=== PATIENT | male | born 2000 | race Caucasian/White ===

== ENCOUNTER 2023-05-01 18:56 | Emergency (ER) | payer BC ==
[~2023-05-01] VITALS: Ht 172.7 cm; Wt 79.5 kg
[2023-05-01 19:35] LABS: ALBUMIN 4.9 g/dL (3.5-5.0)
[2023-05-01 19:37] LABS: CALCIUM 9.7 mg/dL (8.3-10.5)
[2023-05-01 19:38] LABS: TOTAL PROTEIN 7.8 g/dL (6.4-8.3)
[2023-05-01 19:40] LABS: TOTAL BILIRUBIN 0.6 mg/dL (0.2-1.2)
[2023-05-01 19:45] LABS: BASO # 0.04 K/mm3 (0.02-0.10); EOS # 0.04 K/mm3 (0.04-0.40); EOS % 0.3 % (0.0-4.0); HEMATOCRIT 43.7 % (42.0-52.0); HEMOGLOBIN 15.1 g/dL (13.5-18.0); LYMPH# 1.82 K/mm3 (1.50-4.00); MEAN CELL VOLUME 90 fl (78-100); MEAN CORPUSCULAR HEMOGLOBIN 31 pg (27-31); MEAN CORPUSCULAR HGB CONC 35 g/dL (33-37); MONO # 1.18 K/mm3 (0.20-0.80); NEU # 12.16 K/mm3 (1.40-6.50); PLATELET COUNT 274 K/mm3 (130-400); RED BLOOD COUNT 4.87 M/mm3 (4.20-5.60); RED CELL DISTRIBUTION WIDTH 11.3 % (11.5-14.5); WHITE BLOOD COUNT 15.3 K/mm3 (4.8-10.8)
[2023-05-01 19:52] LABS: PH-URINE 8.5 (5.0 - 8.0); URINE APPEARANCE HAZY; URINE BILIRUBIN NEGATIVE (NEGATIVE); URINE BLOOD NEGATIVE (NEGATIVE); URINE COLOR YELLOW; URINE GLUCOSE NEGATIVE (NEGATIVE); URINE KETONE NEGATIVE (NEGATIVE); URINE LEUKOCYTE ESTERASE NEGATIVE (NEGATIVE); URINE NITRATE NEGATIVE (NEGATIVE); URINE PROTEIN(semi-quant) NEGATIVE (NEGATIVE); URINE UROBILINOGEN NORMAL (NORMAL)
[2023-05-01 20:13] LABS: URINE MUCUS PRESENT (NOT PRESENT); URINE WBC 0-1 /hpf (0-3)
[2023-05-01 20:29] VITALS: BP 122/68
== END 2023-05-01 20:29 | disposition short-term general hospital (02) ==
LOC: ED 18:56
PROVIDERS: Physician Assistant
DX: K35.80 Unspecified acute appendicitis (principal); Z28.310 Unvaccinated for COVID-19
CPT/HCPCS: J2543; Q9967